=== PATIENT | male | born 1940 | race Caucasian/White ===

== ENCOUNTER 2020-10-08 14:01 | Emergency (ER) | payer MEDICARE ==
[2020-10-08 14:29] VITALS: RESP 18
[2020-10-08] MEDS ORDERED: LIDOCAINE URO-JET JELLY 2% 5 ML KIT URETHRAL ONE ×2 (15:12→15:50)
[2020-10-08 15:53] LABS: Anisocytosis Slight; Basophils % (A) 0 %; Eosinophils # (A) 0.2 k/uL (0-0.7); Eosinophils % (A) 3 %; HCT 35.6 % (39.0-53.0); HGB 11.6 gm/dL (13.0-17.5); Lymphocytes # (A) 0.8 k/uL (1.0-4.8); Lymphocytes % (A) 13 %; MCH 31.3 pg (25.0-35.0); MCHC 32.5 g/dL (31.0-37.0); MCV 96.5 fL (80.0-100.0); Macrocytosis Slight; Mean Platelet Volume 9.6; Monocytes # (A) 0.5 k/uL (0-1.0); Monocytes % (A) 7 %; Neutrophils # (A) 4.8 k/uL (1.3-7.7); Neutrophils % (A) 75 %; Platelet Count 116 k/uL (150-450); RBC 3.69 m/uL (4.30-5.90); RDW 16.2 % (11.5-15.5); WBC 6.4 k/uL (3.8-10.6)
[2020-10-08 16:01] LABS: African American GFR (CKD) >90 (>60 ml/min/1.73 sqM); Anion Gap 1 mmol/L; Blood Urea Nitrogen 18 mg/dL (9-20); Calcium 7.8 mg/dL (8.4-10.2); Carbon Dioxide 28 mmol/L (22-30); Chloride 111 mmol/L (98-107); Glucose 143 mg/dL (74-99); Non-African American GFR(CKD) >90 (>60 ml/min/1.73 sqM); Potassium 3.6 mmol/L (3.5-5.1); Sodium 140 mmol/L (137-145)
[2020-10-08 16:07] VITALS: TEMP 98.6
[2020-10-08 18:02] VITALS: BP 146/66; PULSE 62
--- NOTE | 2020-10-08 19:37 | ED ---
Male Urogenital HPI - General Chief complaint: Urogenital Stated complaint: Urinary retention Time Seen by Provider: 10/08/20 14:16 Source: patient Mode of arrival: EMS Limitations: no limitations - History of Present Illness Initial comments: Graham gomez a pleasant 80 yo M presents to the ER today as a transfer from [facility] with the need for Bhatia catheter placement. Apparently he arrived at their ER with the indwelling Bhatia catheter that was not draining, that catheter was removed and nursing staff was unable to replace the catheter. He was transferred here for evaluation by urology. - Related Data Home Medications Medication Instructions Recorded Confirmed Acetaminophen Tab [Tylenol] 650 mg PO Q4H PRN 10/08/20 10/08/20 Aspirin 81 mg PO DAILY 10/08/20 10/08/20 Carvedilol [Coreg] 12.5 mg PO BID 10/08/20 10/08/20 Levothyroxine Sodium [Synthroid] 50 mcg PO DAILY 10/08/20 10/08/20 Mag Hydrox/Aluminum Hyd/Simeth 5 ml PO DAILY PRN 10/08/20 10/08/20 [Mylanta Maximum Strength Liq] Magnesium Hydroxide [Milk of 2,400 mg PO DAILY@1400 PRN 10/08/20 10/08/20 Magnesia Concentrate] Mupirocin 2% Oint [Bactroban 2% 1 applic TOPICAL DAILY 10/08/20 10/08/20 Oint] Na Phos,M-B/Na Phos,Di-Ba [Fleet 133 ml RECTAL DAILY@1900 PRN 10/08/20 10/08/20 Adult] Tamsulosin HCl [Flomax] 0.4 mg PO BID 10/08/20 10/08/20 bisacodyL [Dulcolax] 10 ml RECTAL DAILY@1400 PRN 10/08/20 10/08/20 diphenhydrAMINE HCL [Benadryl] 25 mg PO HS PRN 10/08/20 10/08/20 dronabinoL [Marinol] 2.5 mg PO BID 10/08/20 10/08/20 Allergies Allergy/AdvReac Type Severity Reaction Status Date / Time bee venom protein (honey bee) Allergy Anaphylaxis Verified 10/08/20 16:20 Penicillins Allergy Unknown Verified 10/08/20 16:20 Review of Systems ROS Statement: Those systems with pertinent positive or pertinent negative responses have been documented in the HPI. ROS Other: All systems not noted in ROS Statement are negative. Past Medical History Past Medical History: Cancer, Supraventricular Tachycardia (SVT), Thyroid Disorder Additional Past Medical History / Comment(s): bph Past Surgical History: Appendectomy, Hernia Repair Smoking Status: Former smoker Past Alcohol Use History: None Reported General Exam - General Exam Comments Initial Comments: Physical Exam GENERAL: Patient is well-developed and well-nourished. Patient is nontoxic and well-hydrated and is in no distress. HENT: Normocephalic, Atraumatic. EYES: PERRL, EOMI PULMONARY: Unlabored respirations. CARDIOVASCULAR: RRR Warm and well perfused extremities ABDOMEN: Non-distended Bladder is palpable above the umbilicus SKIN: No rashes or bruising : Deferred NEUROLOGIC: Alert and oriented Normal speech Normal gait MUSCULOSKELETAL: Moving all extremities with no apparent injury PSYCHIATRIC: No SI/HI Limitations: no limitations Course Vital Signs 10/08/20 10/08/20 10/08/20 14:21 15:39 16:06 Temperature 98.6 F Pulse Rate 57 L 56 L Respiratory 18 18 Rate Blood Pressure 135/65 137/66 O2 Sat by Pulse 61 L 100 Oximetry 10/08/20 18:01 Temperature Pulse Rate 62 Respiratory 18 Rate Blood Pressure 146/66 O2 Sat by Pulse 100 Oximetry Medical Decision Making - Medical Decision Making Patient was seen and evaluated history is obtained from medical record Nursing staff attempted Bhatia catheter placement was unsuccessful, I attempted to place an 18-Serbian coud catheter, catheter would not advance Urology was consult to not arrived at bedside performed a bedside cystography with catheter placement Given the difficult fully a gram of Rocephin was ordered patient be discharged home to follow up outpatient - Lab Data Result diagrams: 10/08/20 15:40 10/08/20 15:40 Lab Results 10/08/20 10/08/20 Range/Units 15:40 15:40 WBC 6.4 (3.8-10.6) k/uL RBC 3.69 L (4.30-5.90) m/uL Hgb 11.6 L (13.0-17.5) gm/dL Hct 35.6 L (39.0-53.0) % MCV 96.5 (80.0-100.0) fL MCH 31.3 (25.0-35.0) pg MCHC 32.5 (31.0-37.0) g/dL RDW 16.2 H (11.5-15.5) % Plt Count 116 L (150-450) k/uL MPV 9.6 Neutrophils % 75 % Lymphocytes % 13 % Monocytes % 7 % Eosinophils % 3 % Basophils % 0 % Neutrophils # 4.8 (1.3-7.7) k/uL Lymphocytes # 0.8 L (1.0-4.8) k/uL Monocytes # 0.5 (0-1.0) k/uL Eosinophils # 0.2 (0-0.7) k/uL Basophils # 0.0 (0-0.2) k/uL Anisocytosis Slight Macrocytosis Slight Sodium 140 (137-145) mmol/L Potassium 3.6 (3.5-5.1) mmol/L Chloride 111 H (98-107) mmol/L Carbon Dioxide 28 (22-30) mmol/L Anion Gap 1 mmol/L BUN 18 (9-20) mg/dL Creatinine 0.46 L (0.66-1.25) mg/dL Est GFR (CKD-EPI)AfAm >90 (>60 ml/min/1.73 sqM) Est GFR (CKD-EPI)NonAf >90 (>60 ml/min/1.73 sqM) Glucose 143 H (74-99) mg/dL Calcium 7.8 L (8.4-10.2) mg/dL Disposition Clinical Impression: Urinary retention Disposition: HOME SELF-CARE Condition: Stable Instructions (If sedation given, give patient instructions): Bhatia Catheter Placement and Care (ED) Is patient prescribed a controlled substance at d/c from ED?: No Referrals: None,Stated [Primary Care Provider] - 1-2 days Adolfo Mark MD [STAFF PHYSICIAN] - 1-2 days
--- NOTE | 2020-10-08 20:10 | P.GSCN ---
History of Present Illness Consult date: 10/08/20 Reason for Consult: Inability to insert Bhatia catheter Requesting physician: Cyndi Meraz History of present illness: The patient is an 80-year-old white male transferred from [facility]. He apparently had an indwelling Bhatia catheter, for reasons unknown to me. The catheter was not draining and they were unable to successfully replace the catheter. Attempts by the ER staff at [facility] were also unsuccessful. Review of Systems - Constitutional Denies chills, Denies fever Past Medical History Past Medical History: Cancer, Supraventricular Tachycardia (SVT), Thyroid Disorder Additional Past Medical History / Comment(s): bph Past Surgical History: Appendectomy, Hernia Repair Smoking Status: Former smoker Past Alcohol Use History: None Reported Medications and Allergies Home Medications Medication Instructions Recorded Confirmed Type Acetaminophen Tab [Tylenol] 650 mg PO Q4H PRN 10/08/20 10/08/20 History Aspirin 81 mg PO DAILY 10/08/20 10/08/20 History Carvedilol [Coreg] 12.5 mg PO BID 10/08/20 10/08/20 History Levothyroxine Sodium [Synthroid] 50 mcg PO DAILY 10/08/20 10/08/20 History Mag Hydrox/Aluminum Hyd/Simeth 5 ml PO DAILY PRN 10/08/20 10/08/20 History [Mylanta Maximum Strength Liq] Magnesium Hydroxide [Milk of 2,400 mg PO DAILY@1400 PRN 10/08/20 10/08/20 History Magnesia Concentrate] Mupirocin 2% Oint [Bactroban 2% 1 applic TOPICAL DAILY 10/08/20 10/08/20 History Oint] Na Phos,M-B/Na Phos,Di-Ba [Fleet 133 ml RECTAL DAILY@1900 PRN 10/08/20 10/08/20 History Adult] Tamsulosin HCl [Flomax] 0.4 mg PO BID 10/08/20 10/08/20 History bisacodyL [Dulcolax] 10 ml RECTAL DAILY@1400 PRN 10/08/20 10/08/20 History diphenhydrAMINE HCL [Benadryl] 25 mg PO HS PRN 10/08/20 10/08/20 History dronabinoL [Marinol] 2.5 mg PO BID 10/08/20 10/08/20 History Allergies Allergy/AdvReac Type Severity Reaction Status Date / Time bee venom protein (honey bee) Allergy Anaphylaxis Verified 10/08/20 16:20 Penicillins Allergy Unknown Verified 10/08/20 16:20 Surgical - Exam Vital Signs Pulse Resp BP Pulse Ox 57 L 18 135/65 61 L 10/08/20 14:21 10/08/20 14:21 10/08/20 14:21 10/08/20 14:21 - General well developed, well nourished, no distress - Respiratory normal respiratory effort - Abdomen Abdomen: soft, non tender, no guarding, no rigid, no rebound - Genitourinary Mild penile edema. No cutaneous penile lesions. The urethral meatus is normal. - Psychiatric oriented to time, oriented to person, oriented to place, speech is normal, memory intact Bilateral lower extremity edema. Results - Labs 10/08/20 15:40 10/08/20 15:40 Abnormal Lab Results - Last 24 Hours (Table) 10/08/20 10/08/20 Range/Units 15:40 15:40 RBC 3.69 L (4.30-5.90) m/uL Hgb 11.6 L (13.0-17.5) gm/dL Hct 35.6 L (39.0-53.0) % RDW 16.2 H (11.5-15.5) % Plt Count 116 L (150-450) k/uL Lymphocytes # 0.8 L (1.0-4.8) k/uL Chloride 111 H (98-107) mmol/L Creatinine 0.46 L (0.66-1.25) mg/dL Glucose 143 H (74-99) mg/dL Calcium 7.8 L (8.4-10.2) mg/dL Diabetes panel 10/08/20 Range/Units 15:40 Sodium 140 (137-145) mmol/L Potassium 3.6 (3.5-5.1) mmol/L Chloride 111 H (98-107) mmol/L Carbon Dioxide 28 (22-30) mmol/L BUN 18 (9-20) mg/dL Creatinine 0.46 L (0.66-1.25) mg/dL Glucose 143 H (74-99) mg/dL Calcium 7.8 L (8.4-10.2) mg/dL Calcium panel 10/08/20 Range/Units 15:40 Calcium 7.8 L (8.4-10.2) mg/dL Pituitary panel 10/08/20 Range/Units 15:40 Sodium 140 (137-145) mmol/L Potassium 3.6 (3.5-5.1) mmol/L Chloride 111 H (98-107) mmol/L Carbon Dioxide 28 (22-30) mmol/L BUN 18 (9-20) mg/dL Creatinine 0.46 L (0.66-1.25) mg/dL Glucose 143 H (74-99) mg/dL Calcium 7.8 L (8.4-10.2) mg/dL Adrenal panel 10/08/20 Range/Units 15:40 Sodium 140 (137-145) mmol/L Potassium 3.6 (3.5-5.1) mmol/L Chloride 111 H (98-107) mmol/L Carbon Dioxide 28 (22-30) mmol/L BUN 18 (9-20) mg/dL Creatinine 0.46 L (0.66-1.25) mg/dL Glucose 143 H (74-99) mg/dL Calcium 7.8 L (8.4-10.2) mg/dL Assessment and Plan (1) Urethral false passage Current Visit: Yes Status: Acute Code(s): N36.5 - URETHRAL FALSE PASSAGE SNOMED Code(s): 21742052 Plan: The penis was prepped and draped sterilely. 2% lidocaine gel was administered intraurethrally. I was unable to pass a 16-Russian coud-tip Bhatia catheter. A filiform was advanced into the bladder, and it was possible to pass a 12-Russian follower into the bladder. However, a 14-Russian follower could not be advanced into the bladder. Therefore, flexible cystoscopy was performed. A false passage was identified within the bulbous urethra. The cystoscope was advanced under direct vision into the bladder, and a guidewire placed. A 16-Russian Bhatia catheter was placed over the wire. The catheter was irrigated to confirm proper placement, and was then connected to gravity drainage. The patient was subsequently discharged.
--- NOTE | 2020-10-08 20:13 | P.PCN ---
Date of Procedure: 10/08/20 Preoperative Diagnosis: Urethral false passage Postoperative Diagnosis: Same Procedure(s) Performed: Cystoscopy with Bhatia catheter placement Anesthesia: local Surgeon: Adolfo Mark Estimated Blood Loss (ml): 10 Pathology: none sent Condition: stable Disposition: no change Indications for Procedure: The patient is an 80-year-old white male transferred from [facility]. He apparently had an indwelling Bhatia catheter, for reasons unknown to me. The catheter was not draining and they were unable to successfully replace the catheter. I was unable to place a Bhatia catheter, or perform urethral dilation with filiforms and followers. Operative Findings: Bulbous urethral false passage Description of Procedure: The patient was lying supine on his stretcher in the emergency room. The penis was prepped and draped sterilely. 2% lidocaine gel was administered intraurethrally. The 16-Maldivian flexible cystoscope was passed through the urethra and into the bladder under direct vision. The penile urethra appeared normal. A bulbous urethral false passage was identified, but it was not difficult to stay within the lumen and advanced the cystoscope through the prostatic urethra and into the bladder. The prostate was visually occluded, with a bilobar configuration. A 0.035 inch guidewire was passed through the cystoscope and into the bladder, where it coiled. The cystoscope was removed. The tip of a 16-Maldivian Bhatia catheter was incised with the scalpel, and the catheter was advanced over the wire and into the bladder. The catheter was then irrigated to confirm proper placement. The catheter was then left to gravity drainage. The patient tolerated the procedure well.
[2020-10-08 20:25] LABS: Appearance,Urine Cloudy (Clear); Bacteria,Urine Few /hpf; Bilirubin,Urine Negative (Negative); Blood,Urine Large (Negative); Color,Urine Light Red; Glucose,Urine (UA) Negative (Negative); Ketones,Urine Negative (Negative); Leukocyte Esterase,Urine Small (Negative); Mucus,Urine Moderate /hpf; Nitrite,Urine Negative (Negative); Protein,Urine Trace (Negative); RBC,Urine >182 /hpf (0-5); Specific Gravity,Urine 1.013 (1.001-1.035); Urobilinogen,Urine <2.0 mg/dL (<2.0); WBC,Urine 90 /hpf (0-5)
--- NOTE | 2020-11-09 00:45 | ED ---
Medical Decision Making - Lab Data Result diagrams: 10/08/20 15:40 10/08/20 15:40 Lab Results 10/08/20 10/08/20 10/08/20 Range/Units 15:40 15:40 20:16 WBC 6.4 (3.8-10.6) k/uL RBC 3.69 L (4.30-5.90) m/uL Hgb 11.6 L (13.0-17.5) gm/dL Hct 35.6 L (39.0-53.0) % MCV 96.5 (80.0-100.0) fL MCH 31.3 (25.0-35.0) pg MCHC 32.5 (31.0-37.0) g/dL RDW 16.2 H (11.5-15.5) % Plt Count 116 L (150-450) k/uL MPV 9.6 Neutrophils % 75 % Lymphocytes % 13 % Monocytes % 7 % Eosinophils % 3 % Basophils % 0 % Neutrophils # 4.8 (1.3-7.7) k/uL Lymphocytes # 0.8 L (1.0-4.8) k/uL Monocytes # 0.5 (0-1.0) k/uL Eosinophils # 0.2 (0-0.7) k/uL Basophils # 0.0 (0-0.2) k/uL Anisocytosis Slight Macrocytosis Slight Sodium 140 (137-145) mmol/L Potassium 3.6 (3.5-5.1) mmol/L Chloride 111 H (98-107) mmol/L Carbon Dioxide 28 (22-30) mmol/L Anion Gap 1 mmol/L BUN 18 (9-20) mg/dL Creatinine 0.46 L (0.66-1.25) mg/dL Est GFR (CKD-EPI)AfAm >90 (>60 ml/min/1.73 sqM) Est GFR (CKD-EPI)NonAf >90 (>60 ml/min/1.73 sqM) Glucose 143 H (74-99) mg/dL Calcium 7.8 L (8.4-10.2) mg/dL Urine Color Light Red Urine Appearance Cloudy (Clear) Urine pH 5.0 (5.0-8.0) Ur Specific [place] 1.013 (1.001-1.035) Urine Protein Trace H (Negative) Urine Glucose (UA) Negative (Negative) Urine Ketones Negative (Negative) Urine Blood Large H (Negative) Urine Nitrite Negative (Negative) Urine Bilirubin Negative (Negative) Urine Urobilinogen <2.0 (<2.0) mg/dL Ur Leukocyte Esterase Small H (Negative) Urine RBC >182 H (0-5) /hpf Urine WBC 90 H (0-5) /hpf Urine Bacteria Few H (None) /hpf Urine Mucus Moderate H (None) /hpf Disposition Clinical Impression: Urinary retention Disposition: HOME SELF-CARE Condition: Stable Instructions (If sedation given, give patient instructions): Nicole Catheter Placement and Care (ED) Is patient prescribed a controlled substance at d/c from ED?: No Referrals: Adolfo Mark MD [STAFF PHYSICIAN] - 1-2 days None,Stated [Primary Care Provider] - 1-2 days Procedures - Catheter Insertion (Urinary) Indications: to alleviate urinary retention Prophylactic Antibiotics Given: No Bladder Scan/US before Catheterization: Yes Preparation: Povidone-Iodine Type of Catheter Inserted: Nicole Catheter Balloon Size (mLs): 10 Topical Anesthesia Used: No Patient Tolerated Procedure: well Additional Comments: Unable to place nicole - urology consulted
== END 2020-10-08 20:41 | disposition home or self-care (01) ==
LOC: EC 14:01
DX: N40.1 Benign prostatic hyperplasia with lower urinary tract symptoms (principal); R33.8 Other retention of urine; Z79.82 Long term (current) use of aspirin; Z79.899 Other long term (current) drug therapy; Z88.0 Allergy status to penicillin; Z91.030 Bee allergy status; Z87.891 Personal history of nicotine dependence; Z80.9 Family history of malignant neoplasm, unspecified; Z82.49 Family history of ischemic heart disease and other diseases of the circulatory system; Z83.49 Family history of other endocrine, nutritional and metabolic diseases; Z84.2 Family history of other diseases of the genitourinary system; Z79.890 Hormone replacement therapy; R60.0 Localized edema; N36.5 Urethral false passage
CPT/HCPCS: 51798; 36415; 80048; 85025; 81001; J0696; 52000; 96365; 99284